=== PATIENT | male | born 1965 | race African-American/Black ===

== ENCOUNTER 2025-05-24 18:42 | Emergency (ER) | payer BC ==
[~2025-05-24 18:42] MED LIST: Iopamidol 300 61% 100 ML VIAL FS ONE
[2025-05-24] MEDS ORDERED: Acetaminophen 500 MG TAB ONE (19:28)
[2025-05-24 19:37] LABS: #Basophils Less than 0.03 10x3/uL (0.0-0.2); #Eosinophils 0.30 10x3/uL (0.0-0.5); #Monocytes 0.33 10x3/uL (0.0-1.1); #Neutrophils 6.48 10x3/uL (1.5-8.4); %Basophils 0.1 % (0.0-2.0); %Eosinophils 3.9 % (0.0-6.0); %Lymphocytes 6.4 % (18.0-47.0); %Monocytes 4.3 % (0.0-10.0); %Neutrophils 84.9 % (40.0-75.0); Hematocrit 43.3 % (38.8-50.0); Hemoglobin 14.4 g/dL (13.5-17.5); Mean Corpuscular Hemoglobin 28.0 pg (27.0-33.0); Mean Corpuscular Volume 84.1 fL (81.2-95.1); Platelet Count 269 10x3/uL (150-450); Red Blood Cell (RBC) Count 5.15 10x6/uL (4.32-5.72); White Blood Cell (WBC) Count 7.64 10x3/uL (3.5-10.5)
[2025-05-24 19:51] LABS: ALT (SGPT) 253 U/L (Less than 45); AST (SGOT) 225 U/L (11-34); Albumin 3.5 g/dL (3.1-4.5); Alkaline Phosphatase 148 U/L (40-110); Anion Gap 19 mmol/L (10-20); BUN (Urea Nitrogen) 12 mg/dL (8.4-25.7); Bilirubin, Total 2.4 mg/dL (0.3-1.2); Calc. Creatinine Clearance 0 mL/min (70-130); Calcium 8.3 mg/dL (7.8-10.44); Carbon Dioxide 20 mmol/L (22-29); Chloride 103 mmol/L (98-107); Globulin 3.8 g/dL (2.4-3.5); Glucose 133 mg/dL (70-105); Potassium 3.5 mmol/L (3.5-5.1); Sodium 138 mmol/L (136-145)
[2025-05-24 19:55] LABS: Troponin I Less than 0.010 ng/mL (< 0.028)
[2025-05-24 21:22] LABS: Glucose, Urine (Dipstick) Normal (Negative); Leukocyte Negative (Negative); Protein, Urine (Dipstick) 15 mg/dl (Neg-Trace); Specific Gravity, Urine 1.005 (1.005-1.030)
[2025-05-24 21:49] LABS: Bacteria/HPF Rare-Few HPF (None Seen); CAUTI Indications for Culture Pelvic or flank pain; RBC/HPF 0-3 HPF (0-3); WBC/HPF 0-3 HPF (0-3)
[2025-05-24 21:51] LABS: Urine Culture Reflex No No
== END 2025-05-24 21:55 | disposition home or self-care (01) ==
LOC: CSHERS 18:42
DX: R55 Syncope and collapse (principal); E86.0 Dehydration; R19.7 Diarrhea, unspecified
CPT/HCPCS: 36415; 71045; 71275; 74177; 80053; 81001; 83605; 84484; 85025; 85379; 87040; 87086; 87428; 93005; Q9967